=== PATIENT | female | born 1960 | race Caucasian/White ===

== ENCOUNTER 2022-11-23 18:18 | Inpatient (IN) | payer OTHER ==
[~2022-11-23] VITALS: Ht 157.5 cm; Wt 51.3 kg
[2022-11-23] MEDS: DOCUSATE SODIUM 100 MG CAPSULE PO SCH (22:00)
[2022-11-23] MEDS ORDERED: ACETAMINOPHEN 650 MG/20.3 ML SOLUTION UDCUP PO PRN (22:00)
[2022-11-23] MEDS ORDERED: MELATONIN 3 MG TABLET PO PRN (22:00)
[2022-11-23] MEDS ORDERED: ACETAMINOPHEN 325 MG TABLET PO PRN (22:00)
[2022-11-23] MEDS: SENNOSIDES 8.6 MG TABLET PO SCH (22:00)
[2022-11-23] MEDS ORDERED: DEXTROSE 50%-WATER 25 GM/50 ML SYRINGE IVP PRN (22:15)
[2022-11-23] MEDS: ETHYL ALCOHOL 62% ANTISEPTIC NASAL SANITIZER 0.6 ML AMPUL NASAL SCH (22:44)
[2022-11-23] MEDS: ATORVASTATIN CALCIUM 40 MG TABLET PO SCH (22:44)
[2022-11-23 23:00] VITALS: BP 127/71
[2022-11-23] MEDS: INSULIN GLARGINE,HUM.REC.ANLOG 100 UNITS/ML SQ SCH (23:01)
[2022-11-23] MEDS: INSULIN LISPRO 100 UNITS/ML SQ PRN (23:02)
[2022-11-23 23:31] LABS: GLUCOMETER DEV NAME(LOC) 2WR.2B; GLUCOSE,POINT OF CARE 212 MG/DL (70-110)
[2022-11-24] VITALS: BP 127/71
[2022-11-24] MEDS ORDERED: PNEUMOCOCCAL VACCINE POLYVALENT 0.5 ML VIAL [PPSV23] IM. ONE (04:00)
[2022-11-24 08:00] VITALS: BP 136/80
[2022-11-24] MEDS: ASPIRIN 81 MG CHEWABLE TABLET PO SCH (08:21)
[2022-11-24] MEDS: DOCUSATE SODIUM 100 MG CAPSULE PO SCH ×2 (08:21→20:51)
[2022-11-24] MEDS: MetFORMIN HCL 500 MG TABLET PO SCH ×2 (08:21→17:43)
[2022-11-24] MEDS: ETHYL ALCOHOL 62% ANTISEPTIC NASAL SANITIZER 0.6 ML AMPUL NASAL SCH ×2 (08:22→21:10)
[2022-11-24] MEDS: LISINOPRIL 10 MG TABLET PO SCH (08:22)
[2022-11-24] MEDS: ENOXAPARIN SODIUM 40 MG/0.4 ML PF SYRINGE SQ SCH (08:22)
[2022-11-24] MEDS: INSULIN LISPRO 100 UNITS/ML SQ SCH ×3 (08:29→17:41)
[2022-11-24] MEDS: INSULIN LISPRO 100 UNITS/ML SQ PRN ×4 (08:30→21:13)
[2022-11-24 08:41] LABS: ALANINE AMINOTRANSFERASE 53 U/L (12-78); ALBUMIN 3.5 g/dL (3.4-5.0); ALKALINE PHOSPHATASE 80 U/L (46-116); ANION GAP 4 mmol/L (8-16); ASPARTATE AMINOTRANSFERASE 42 U/L (15-37); BILIRUBIN,TOTAL 0.2 mg/dL (0.1-1.0); CALCIUM, TOTAL 10.1 mg/dL (8.8-10.5); CARBON DIOXIDE 29 mmol/L (22-29); CHLORIDE 104 mmol/L (98-107); CREATININE 0.85 mg/dL (0.60-1.30); GLOMERULAR FILTR. RATE CALC > 60 mL/min (>60); GLUCOSE,RANDOM 183 mg/dL (70-110); POTASSIUM 4.8 mmol/L (3.5-5.1); SODIUM SERUM 137 mmol/L (136-145); TOTAL PROTEIN, SERUM 6.8 g/dL (6.4-8.2); UREA NITROGEN, BLOOD 30 mg/dL (7-18)
[2022-11-24 08:42] LABS: GLUCOMETER DEV NAME(LOC) 2WR.1C; GLUCOSE,POINT OF CARE 176 MG/DL (70-110)
[2022-11-24 08:44] LABS: BASOPHILS % (AUTO) 0.6 % (0.0-2.0); HEMATOCRIT 35.3 % (36-46); LYMPHOCYTES # (AUTO) 1.3 K/uL (1.0-4.8); LYMPHOCYTES % (AUTO) 20.9 % (22.0-44.0); MEAN CORPUSCULAR HEMOGLOBIN 32.1 pg (26.0-34.0); MEAN CORPUSCULAR HGB CONC 34.1 G/dL (31.0-37.0); MEAN CORPUSCULAR VOLUME 94 fL (80-100); MONOCYTES # (AUTO) 0.4 K/uL (0.1-1.0); MONOCYTES % (AUTO) 5.7 % (2.0-9.0); NEUTROPHILS # (AUTO) 4.4 K/uL (1.8-7.7); NEUTROPHILS % (AUTO) 70.8 % (40.0-70.0); PLATELET COUNT (AUTO) 292 K/uL (150-450); RED BLOOD CELL COUNT(AUTO) 3.75 MIL/uL (4.00-5.20); RED CELL DISTRIBUTION WIDTH 13.7 % (11.5-14.5)
[2022-11-24 12:52] LABS: GLUCOMETER DEV NAME(LOC) 2WR.1C; GLUCOSE,POINT OF CARE 184 MG/DL (70-110)
[2022-11-24 17:16] LABS: GLUCOMETER DEV NAME(LOC) 2WR.1C; GLUCOSE,POINT OF CARE 142 MG/DL (70-110)
[2022-11-24 20:10] VITALS: BP 129/85
[2022-11-24] MEDS: SENNOSIDES 8.6 MG TABLET PO SCH (20:51)
[2022-11-24] MEDS: ATORVASTATIN CALCIUM 40 MG TABLET PO SCH (21:10)
[2022-11-24] MEDS: INSULIN GLARGINE,HUM.REC.ANLOG 100 UNITS/ML SQ SCH (21:13)
[2022-11-24 22:41] LABS: GLUCOMETER DEV NAME(LOC) 2WR.2B; GLUCOSE,POINT OF CARE 145 MG/DL (70-110)
[2022-11-25 06:56] LABS: GLUCOMETER DEV NAME(LOC) 2WR.1C; GLUCOSE,POINT OF CARE 114 MG/DL (70-110)
[2022-11-25] MEDS: MetFORMIN HCL 500 MG TABLET PO SCH ×2 (08:30→17:49)
[2022-11-25] MEDS: ENOXAPARIN SODIUM 40 MG/0.4 ML PF SYRINGE SQ SCH (09:30)
[2022-11-25] MEDS: INSULIN LISPRO 100 UNITS/ML SQ SCH ×3 (09:30→17:50)
[2022-11-25] MEDS: ETHYL ALCOHOL 62% ANTISEPTIC NASAL SANITIZER 0.6 ML AMPUL NASAL SCH ×2 (09:30→21:03)
[2022-11-25] MEDS: ASPIRIN 81 MG CHEWABLE TABLET PO SCH (09:31)
[2022-11-25] MEDS: DOCUSATE SODIUM 100 MG CAPSULE PO SCH ×3 (09:31→21:03)
[2022-11-25] MEDS: LISINOPRIL 10 MG TABLET PO SCH (09:36)
[2022-11-25 10:51] VITALS: BP 113/70
[2022-11-25] MEDS: INSULIN LISPRO 100 UNITS/ML SQ PRN ×3 (12:35→21:07)
[2022-11-25 13:31] LABS: GLUCOMETER DEV NAME(LOC) 2WR.2B; GLUCOSE,POINT OF CARE 163 MG/DL (70-110)
[2022-11-25 19:16] LABS: GLUCOMETER DEV NAME(LOC) 2WR.2B; GLUCOSE,POINT OF CARE 167 MG/DL (70-110)
[2022-11-25 21:00] VITALS: BP 130/74
[2022-11-25] MEDS: SENNOSIDES 8.6 MG TABLET PO SCH (21:00)
[2022-11-25] MEDS: ATORVASTATIN CALCIUM 40 MG TABLET PO SCH (21:03)
[2022-11-25] MEDS: INSULIN GLARGINE,HUM.REC.ANLOG 100 UNITS/ML SQ SCH (21:05)
[2022-11-25 22:21] LABS: GLUCOMETER DEV NAME(LOC) 2WR.2B; GLUCOSE,POINT OF CARE 215 MG/DL (70-110)
[2022-11-26 03:30] LABS: APPEARANCE,URINE CLEAR (CLEAR); BILIRUBIN,URINE NEGATIVE (NEGATIVE); GLUCOSE, URINE (UA) >=1000 mg/dL (NEGATIVE); KETONES,URINE NEGATIVE (NEGATIVE); LEUKOCYTE ESTERASE ,URINE NEGATIVE (NEGATIVE); NITRATE,URINE NEGATIVE (NEGATIVE); OCCULT BLOOD,URINE NEGATIVE (NEGATIVE); PROTEIN,URINE TRACE mg/dL (NEGATIVE); SPECIFIC GRAVITIY, URINE 1.013 (1.003-1.030); UROBILINOGEN,URINE <=1.0 mg/dL (<=1.0)
[2022-11-26 03:42] LABS: BACTERIA,URINE Rare /HPF (None Seen); RBC,URINE None Seen /HPF (0-2); SQUAMOUS EPITHELIAL CELL,UR Few /LPF (None Seen); WBC,URINE 0-2 /HPF (0-5)
[2022-11-26 06:56] LABS: GLUCOMETER DEV NAME(LOC) 2WR.1C; GLUCOSE,POINT OF CARE 109 MG/DL (70-110)
[2022-11-26] MEDS: INSULIN LISPRO 100 UNITS/ML SQ SCH ×3 (07:59→17:19)
[2022-11-26] MEDS: ASPIRIN 81 MG CHEWABLE TABLET PO SCH (08:03)
[2022-11-26] MEDS: CLOPIDOGREL BISULFATE 75 MG TABLET PO SCH (08:03)
[2022-11-26] MEDS: LISINOPRIL 10 MG TABLET PO SCH (08:03)
[2022-11-26] MEDS: MetFORMIN HCL 500 MG TABLET PO SCH ×2 (08:04→17:20)
[2022-11-26] MEDS: ENOXAPARIN SODIUM 40 MG/0.4 ML PF SYRINGE SQ SCH (08:04)
[2022-11-26] MEDS: ETHYL ALCOHOL 62% ANTISEPTIC NASAL SANITIZER 0.6 ML AMPUL NASAL SCH ×2 (08:22→20:04)
[2022-11-26 09:05] VITALS: BP 124/69
[2022-11-26 11:52] LABS: GLUCOMETER DEV NAME(LOC) 2WR.2B; GLUCOSE,POINT OF CARE 125 MG/DL (70-110)
[2022-11-26 16:56] LABS: GLUCOMETER DEV NAME(LOC) 2WR.1C; GLUCOSE,POINT OF CARE 147 MG/DL (70-110)
[2022-11-26] MEDS: INSULIN LISPRO 100 UNITS/ML SQ PRN ×2 (17:22→20:11)
[2022-11-26 19:53] VITALS: BP 150/73
[2022-11-26] MEDS: ATORVASTATIN CALCIUM 40 MG TABLET PO SCH (20:04)
[2022-11-26] MEDS: DOCUSATE SODIUM 100 MG CAPSULE PO SCH (20:04)
[2022-11-26] MEDS: SENNOSIDES 8.6 MG TABLET PO SCH (20:05)
[2022-11-26] MEDS: INSULIN GLARGINE,HUM.REC.ANLOG 100 UNITS/ML SQ SCH (20:08)
[2022-11-26 20:31] LABS: GLUCOMETER DEV NAME(LOC) 2WR.2B; GLUCOSE,POINT OF CARE 260 MG/DL (70-110)
[2022-11-27 06:36] LABS: GLUCOMETER DEV NAME(LOC) 2WR.1C; GLUCOSE,POINT OF CARE 133 MG/DL (70-110)
[2022-11-27] MEDS: ASPIRIN 81 MG CHEWABLE TABLET PO SCH (07:42)
[2022-11-27] MEDS: MetFORMIN HCL 500 MG TABLET PO SCH ×2 (07:42→17:39)
[2022-11-27] MEDS: LISINOPRIL 10 MG TABLET PO SCH (07:44)
[2022-11-27] MEDS: ETHYL ALCOHOL 62% ANTISEPTIC NASAL SANITIZER 0.6 ML AMPUL NASAL SCH ×2 (07:45→20:07)
[2022-11-27] MEDS: ENOXAPARIN SODIUM 40 MG/0.4 ML PF SYRINGE SQ SCH (07:45)
[2022-11-27] MEDS: CLOPIDOGREL BISULFATE 75 MG TABLET PO SCH (07:45)
[2022-11-27] MEDS: INSULIN LISPRO 100 UNITS/ML SQ SCH ×3 (07:47→16:30)
[2022-11-27] MEDS: DOCUSATE SODIUM 100 MG CAPSULE PO SCH ×2 (07:51→20:07)
[2022-11-27 08:28] VITALS: BP 112/60
[2022-11-27] MEDS: INSULIN LISPRO 100 UNITS/ML SQ PRN ×2 (12:19→20:13)
[2022-11-27 16:37] LABS: GLUCOMETER DEV NAME(LOC) 2WR.1C; GLUCOSE,POINT OF CARE 150 MG/DL (70-110)
[2022-11-27 16:56] LABS: GLUCOMETER DEV NAME(LOC) 2WR.1C; GLUCOSE,POINT OF CARE 84 MG/DL (70-110)
[2022-11-27] MEDS: SENNOSIDES 8.6 MG TABLET PO SCH (20:07)
[2022-11-27] MEDS: ATORVASTATIN CALCIUM 40 MG TABLET PO SCH (20:07)
[2022-11-27] MEDS: INSULIN GLARGINE,HUM.REC.ANLOG 100 UNITS/ML SQ SCH (20:11)
[2022-11-27 20:56] LABS: GLUCOMETER DEV NAME(LOC) 2WR.1C; GLUCOSE,POINT OF CARE 185 MG/DL (70-110)
[2022-11-27 21:00] VITALS: BP 118/54
[2022-11-28 06:56] LABS: GLUCOMETER DEV NAME(LOC) 2WR.2B; GLUCOSE,POINT OF CARE 78 MG/DL (70-110)
[2022-11-28] MEDS: INSULIN LISPRO 100 UNITS/ML SQ SCH ×3 (07:00→17:15)
[2022-11-28] MEDS: CLOPIDOGREL BISULFATE 75 MG TABLET PO SCH (07:52)
[2022-11-28] MEDS: ETHYL ALCOHOL 62% ANTISEPTIC NASAL SANITIZER 0.6 ML AMPUL NASAL SCH ×2 (07:52→21:18)
[2022-11-28] MEDS: ENOXAPARIN SODIUM 40 MG/0.4 ML PF SYRINGE SQ SCH (07:52)
[2022-11-28] MEDS: LISINOPRIL 10 MG TABLET PO SCH (07:52)
[2022-11-28] MEDS: MetFORMIN HCL 500 MG TABLET PO SCH ×2 (07:52→17:10)
[2022-11-28] MEDS: ASPIRIN 81 MG CHEWABLE TABLET PO SCH (07:52)
[2022-11-28] MEDS: DOCUSATE SODIUM 100 MG CAPSULE PO SCH ×2 (07:54→21:00)
[2022-11-28 08:39] VITALS: BP 117/63
[2022-11-28] MEDS: INSULIN LISPRO 100 UNITS/ML SQ PRN ×2 (12:29→17:17)
[2022-11-28 12:46] LABS: GLUCOMETER DEV NAME(LOC) 2WR.2B; GLUCOSE,POINT OF CARE 142 MG/DL (70-110)
[2022-11-28 17:31] LABS: GLUCOMETER DEV NAME(LOC) 2WR.2B; GLUCOSE,POINT OF CARE 177 MG/DL (70-110)
[2022-11-28 20:12] VITALS: BP 138/68
[2022-11-28] MEDS: SENNOSIDES 8.6 MG TABLET PO SCH (21:00)
[2022-11-28] MEDS: ATORVASTATIN CALCIUM 40 MG TABLET PO SCH (21:18)
[2022-11-28] MEDS: INSULIN GLARGINE,HUM.REC.ANLOG 100 UNITS/ML SQ SCH (21:20)
[2022-11-28 22:16] LABS: GLUCOMETER DEV NAME(LOC) 2WR.2B; GLUCOSE,POINT OF CARE 138 MG/DL (70-110)
[2022-11-29] MEDS: INSULIN LISPRO 100 UNITS/ML SQ SCH ×3 (07:00→16:30)
[2022-11-29 07:02] LABS: GLUCOMETER DEV NAME(LOC) 2WR.2B; GLUCOSE,POINT OF CARE 89 MG/DL (70-110)
[2022-11-29 08:15] VITALS: BP 114/58
[2022-11-29] MEDS: MetFORMIN HCL 500 MG TABLET PO SCH ×2 (08:23→18:28)
[2022-11-29] MEDS: ENOXAPARIN SODIUM 40 MG/0.4 ML PF SYRINGE SQ SCH (08:23)
[2022-11-29] MEDS: ASPIRIN 81 MG CHEWABLE TABLET PO SCH (08:24)
[2022-11-29] MEDS: CLOPIDOGREL BISULFATE 75 MG TABLET PO SCH (08:24)
[2022-11-29] MEDS: DOCUSATE SODIUM 100 MG CAPSULE PO SCH ×2 (08:24→20:57)
[2022-11-29] MEDS: LISINOPRIL 10 MG TABLET PO SCH (08:24)
[2022-11-29] MEDS: ETHYL ALCOHOL 62% ANTISEPTIC NASAL SANITIZER 0.6 ML AMPUL NASAL SCH ×2 (09:00→20:57)
[2022-11-29 13:01] LABS: GLUCOMETER DEV NAME(LOC) 2WR.1C; GLUCOSE,POINT OF CARE 134 MG/DL (70-110)
[2022-11-29 17:27] LABS: GLUCOMETER DEV NAME(LOC) 2WR.1C; GLUCOSE,POINT OF CARE 94 MG/DL (70-110)
[2022-11-29 20:00] VITALS: BP 116/63
[2022-11-29] MEDS: INSULIN GLARGINE,HUM.REC.ANLOG 100 UNITS/ML SQ SCH (20:56)
[2022-11-29] MEDS: SENNOSIDES 8.6 MG TABLET PO SCH (20:57)
[2022-11-29] MEDS: ATORVASTATIN CALCIUM 40 MG TABLET PO SCH (20:57)
[2022-11-29] MEDS: INSULIN LISPRO 100 UNITS/ML SQ PRN (20:57)
[2022-11-29 23:31] LABS: GLUCOMETER DEV NAME(LOC) 2WR.2B; GLUCOSE,POINT OF CARE 173 MG/DL (70-110)
[2022-11-30] MEDS: INSULIN LISPRO 100 UNITS/ML SQ SCH (07:00)
[2022-11-30 08:05] VITALS: BP 108/66
[2022-11-30] MEDS: CLOPIDOGREL BISULFATE 75 MG TABLET PO SCH (08:06)
[2022-11-30] MEDS: MetFORMIN HCL 500 MG TABLET PO SCH ×2 (08:06→16:48)
[2022-11-30] MEDS: ASPIRIN 81 MG CHEWABLE TABLET PO SCH (08:07)
[2022-11-30] MEDS: DOCUSATE SODIUM 100 MG CAPSULE PO SCH ×2 (08:07→20:12)
[2022-11-30] MEDS: ETHYL ALCOHOL 62% ANTISEPTIC NASAL SANITIZER 0.6 ML AMPUL NASAL SCH ×2 (08:07→20:15)
[2022-11-30] MEDS: LISINOPRIL 10 MG TABLET PO SCH (08:08)
[2022-11-30] MEDS: ENOXAPARIN SODIUM 40 MG/0.4 ML PF SYRINGE SQ SCH (08:09)
[2022-11-30 12:16] LABS: GLUCOMETER DEV NAME(LOC) 2WR.1C; GLUCOSE,POINT OF CARE 72 MG/DL (70-110)
[2022-11-30 12:51] LABS: GLUCOMETER DEV NAME(LOC) 2WR.2B; GLUCOSE,POINT OF CARE 114 MG/DL (70-110)
[2022-11-30 17:11] LABS: GLUCOMETER DEV NAME(LOC) 2WR.2B; GLUCOSE,POINT OF CARE 124 MG/DL (70-110)
[2022-11-30 20:02] VITALS: BP 123/70
[2022-11-30] MEDS: SENNOSIDES 8.6 MG TABLET PO SCH (20:12)
[2022-11-30] MEDS: ATORVASTATIN CALCIUM 40 MG TABLET PO SCH (20:15)
[2022-11-30] MEDS: INSULIN LISPRO 100 UNITS/ML SQ PRN (20:19)
[2022-11-30] MEDS: INSULIN GLARGINE,HUM.REC.ANLOG 100 UNITS/ML SQ SCH (20:20)
[2022-11-30 22:41] LABS: GLUCOMETER DEV NAME(LOC) 2WR.2B; GLUCOSE,POINT OF CARE 182 MG/DL (70-110)
[2022-12-01 07:16] LABS: GLUCOMETER DEV NAME(LOC) 2WR.2B; GLUCOSE,POINT OF CARE 118 MG/DL (70-110)
[2022-12-01] MEDS: MetFORMIN HCL 500 MG TABLET PO SCH ×2 (07:27→15:57)
[2022-12-01] MEDS: LISINOPRIL 10 MG TABLET PO SCH (07:29)
[2022-12-01] MEDS: ETHYL ALCOHOL 62% ANTISEPTIC NASAL SANITIZER 0.6 ML AMPUL NASAL SCH ×2 (07:30→20:56)
[2022-12-01] MEDS: CLOPIDOGREL BISULFATE 75 MG TABLET PO SCH (07:30)
[2022-12-01] MEDS: ASPIRIN 81 MG CHEWABLE TABLET PO SCH (07:31)
[2022-12-01] MEDS: DOCUSATE SODIUM 100 MG CAPSULE PO SCH ×2 (07:32→20:38)
[2022-12-01] MEDS: ENOXAPARIN SODIUM 40 MG/0.4 ML PF SYRINGE SQ SCH (07:32)
[2022-12-01 08:39] VITALS: BP 104/61
[2022-12-01 11:41] LABS: GLUCOMETER DEV NAME(LOC) 2WR.2B; GLUCOSE,POINT OF CARE 208 MG/DL (70-110)
[2022-12-01] MEDS: INSULIN LISPRO 100 UNITS/ML SQ PRN ×3 (12:10→20:54)
[2022-12-01 17:22] LABS: GLUCOMETER DEV NAME(LOC) 2WR.2B; GLUCOSE,POINT OF CARE 172 MG/DL (70-110)
[2022-12-01 20:00] VITALS: BP 103/67
[2022-12-01] MEDS: SENNOSIDES 8.6 MG TABLET PO SCH (20:38)
[2022-12-01] MEDS: INSULIN GLARGINE,HUM.REC.ANLOG 100 UNITS/ML SQ SCH (20:52)
[2022-12-01] MEDS: ATORVASTATIN CALCIUM 40 MG TABLET PO SCH (20:55)
[2022-12-01 22:21] LABS: GLUCOMETER DEV NAME(LOC) 2WR.1C; GLUCOSE,POINT OF CARE 148 MG/DL (70-110)
[2022-12-02 06:32] LABS: GLUCOMETER DEV NAME(LOC) 2WR.2B; GLUCOSE,POINT OF CARE 85 MG/DL (70-110)
[2022-12-02 08:00] VITALS: BP 109/65
[2022-12-02 08:10] VITALS: BP 98/58
[2022-12-02] MEDS: MetFORMIN HCL 500 MG TABLET PO SCH (08:17)
[2022-12-02] MEDS: ETHYL ALCOHOL 62% ANTISEPTIC NASAL SANITIZER 0.6 ML AMPUL NASAL SCH (08:18)
[2022-12-02] MEDS: CLOPIDOGREL BISULFATE 75 MG TABLET PO SCH (08:18)
[2022-12-02] MEDS: ENOXAPARIN SODIUM 40 MG/0.4 ML PF SYRINGE SQ SCH (08:19)
[2022-12-02] MEDS: ASPIRIN 81 MG CHEWABLE TABLET PO SCH (08:19)
[2022-12-02] MEDS: DOCUSATE SODIUM 100 MG CAPSULE PO SCH (08:19)
[2022-12-02] MEDS: LISINOPRIL 10 MG TABLET PO SCH (08:23)
[2022-12-02] MEDS ORDERED: ERGOCALCIFEROL (VIT D2) 50,000 UNITS [1,250 MCG] CAPSULE PO SCH (09:00)
[2022-12-02 09:30] VITALS: BP 106/59
[2022-12-02 09:38] LABS: ANION GAP 5 mmol/L (8-16); CALCIUM, TOTAL 9.7 mg/dL (8.8-10.5); CARBON DIOXIDE 29 mmol/L (22-29); CHLORIDE 103 mmol/L (98-107); CREATININE 0.73 mg/dL (0.60-1.30); GLOMERULAR FILTR. RATE CALC > 60 mL/min (>60); GLUCOSE,RANDOM 228 mg/dL (70-110); SODIUM SERUM 137 mmol/L (136-145); THYROID STIMULATING HORMONE 0.91 uIU/mL (0.36-3.74); UREA NITROGEN, BLOOD 23 mg/dL (7-18)
[2022-12-02] MEDS ORDERED: INSLAN SQ (11:57)
[2022-12-02] MEDS ORDERED: CLOP75TA60 PO (11:57)
[2022-12-02] MEDS ORDERED: INSU100V SQ (11:57)
[2022-12-02] MEDS ORDERED: ASPI81 PO (11:57)
[2022-12-02] MEDS ORDERED: ERGO500054 PO (11:57)
[2022-12-02] MEDS ORDERED: METF-1211 PO (11:57)
[2022-12-02] MEDS ORDERED: LISI-893 PO (11:57)
[2022-12-02] MEDS: INSULIN LISPRO 100 UNITS/ML SQ PRN (12:47)
[2022-12-02 12:56] LABS: GLUCOMETER DEV NAME(LOC) 2WR.1C; GLUCOSE,POINT OF CARE 181 MG/DL (70-110)
== END 2022-12-02 16:30 | disposition home or self-care (01) | DRG 45 ==
LOC: 2WR 21:25
PROVIDERS: ADMIT Physical Medicine & Rehabilitation; ATTEND Physical Medicine & Rehabilitation
DX: I63.9 Cerebral infarction, unspecified (principal); I69.351 Hemiplegia and hemiparesis following cerebral infarction affecting right dominant side; E86.0 Dehydration; E78.5 Hyperlipidemia, unspecified; E11.9 Type 2 diabetes mellitus without complications; I10 Essential (primary) hypertension; R13.10 Dysphagia, unspecified; R47.1 Dysarthria and anarthria; E55.9 Vitamin D deficiency, unspecified; R35.0 Frequency of micturition; R26.9 Unspecified abnormalities of gait and mobility; Z88.6 Allergy status to analgesic agent
CPT/HCPCS: 80048; 80053; 81001; 82962; 84443; 85025; 87081; 92507; 92526; 92610; 93970; 97110; 97112; 97116; 97150; 97162; 97166; 97530; 97535; 99366; J1650; J1815